=== PATIENT | female | born 1990 | race American Indian/Alaskan Native ===

== ENCOUNTER 2017-08-21 16:59 | Emergency (ER) | payer OTHER ==
[2017-08-21] MEDS ORDERED: ZOFRAN ODT PO ONE (21:12)
[2017-08-21] MEDS ORDERED: MOTRIN PO ONE (21:12)
[2017-08-21] MEDS ORDERED: NORCO 5/325 PO ONE (21:12)
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
[2017-08-21 21:35] LABS: HCG Qualitative,Urine Negative (Negative)
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
[2017-08-21 23:02] VITALS: BP 128/76
== END 2017-08-21 23:03 | disposition home or self-care (01) ==
LOC: ED 16:59
DX: M54.9 Dorsalgia, unspecified (principal); Z91.013 Allergy to seafood; Z91.040 Latex allergy status; V89.2XXA Person injured in unspecified motor-vehicle accident, traffic, initial encounter; Y93.89 Activity, other specified; Y92.89 Other specified places as the place of occurrence of the external cause; Y99.8 Other external cause status
CPT/HCPCS: 72070; 72100; 81025; 99284; Q0162